=== PATIENT | male | born 1955 | race Caucasian/White ===

== ENCOUNTER → 2016-10-20 | Day surgery (SDC) | payer OTHER ==
[~2016-10-20] VITALS: Ht 188 cm; Wt 110.8 kg
[~2016-10-20] MED LIST: ACETAMINOPHEN 500 MG CPLT ONE; ATROPINE SULFATE 1% OPHT SOLN 2 ML BTL ONE; ATROPINE SULFATE 1% OPHT SOLN 5 ML BTL RIGHT EYE SCH; BALANCED SALT SOLN OPHT IRRIG 15 ML BTL ONE; CYCLOPENTOLATE HCL 1% OPHT SOLN 2 ML BTL RIGHT EYE SCH; DEXAMETHASONE SOD PHOS 4 MG/ML VIAL ONE; EPINEPHrine HCL (1:1000) 1 MG/ML VIAL ONE; FAMOTIDINE 20 MG/2 ML VIAL ONE; INSULIN HUMAN REGULAR 1,000 UNITS/10 ML VIAL SQ PRN; LACTATED RINGER'S 1000 ML IV SCH; METOPROLOL TARTRATE 25 MG TAB PO PRN; MIDAZOLAM HCL 2 MG/2 ML VIAL ONE; PHENYLEPHRINE HCL 2.5% OPTH SOLN 2 ML BTL RIGHT EYE SCH; PRIL10PO PO; PROPOFOL 200 MG/20 ML AMP IV ONE; SODIUM CHLORID 0.9% 500 ML IV SCH; STERILE WATER FOR INJ 20 ML VIAL ONE; TOBRAMYCIN/DEXAMETHASONE OPTH OINT 3.5 GM TUBE ONE; TRIAMCINOLONE ACETONIDE/PF 40 MG/ML OPTH VIAL ONE; TROPICAMIDE 1% OPTH SOLN 2 ML BTL RIGHT EYE SCH; ceFAZolin INJ 1,000 MG VIAL ONE
[2016-10-20 09:16] VITALS: BP 126/84; PULSE 52; RESP 18; TEMP 97.6; O2SAT 96
[2016-10-20 11:15] LABS: AUTOMATED NEUTROPHIL # 3.8 TH/MM3 (1.8-7.7); BASOPHIL % 0.5 % (0.0-2.0); EOSINOPHIL # 0.1 TH/MM3 (0-0.4); EOSINOPHIL % 1.8 % (0.0-4.0); HEMATOCRIT 42.2 % (39.0-51.0); HEMO FLAGS DIFF FINAL; LYMPH % 26.3 % (9.0-44.0); LYMPHOCYTE # 1.6 TH/MM3 (1.0-4.8); MEAN CORPUSCULAR HEMOGLOBIN 31.3 PG (27.0-34.0); MEAN CORPUSCULAR HGB CONC 32.6 % (32.0-36.0); NEUT % 63.4 % (16.0-70.0); PLATELET COUNT 217 TH/MM3 (150-450); RED CELL DISTRIBUTION WIDTH 13.5 % (11.6-17.2)
[2016-10-20 15:42] VITALS: BP 148/84; PULSE 54; RESP 16; TEMP 98.4; O2SAT 98
--- NOTE | 2016-10-24 11:19 | MP ---
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 PROCEDURE Trans pars plana vitrectomy with epiretinal membrane removal, subretinal membrane removal, internal drainage of subretinal fluid with the use of Perfluoron, endolaser photocoagulation, instillation of 1000 centistokes silicone oil, inferior diathermy right eye. SURGEON Dr. Felipe Patel ANESTHESIA General laryngeal mask anesthesia INDICATIONS Mr. Block is a 61-year-old gentleman with a history a retinal detachment four years ago who underwent a scleral buckle at that time. He states over the last year his vision has decreased gradually. He presented with an inferior retinal detachment with epiretinal membrane and subretinal membrane right eye, wished to proceed electively with repair of this situation to try and increase visual functioning. He was aware of the loss of the superior portion of his visual field. The risks and benefits of surgery were discussed with the patient. It was proposed that vitrectomy be done and any other necessary procedures to reattach the retina including the use of silicone oil. He agreed to proceed. No guarantee was made up as to visual outcome. PROCEDURE IN DETAIL He was brought to [facility] operating room one and placed on the operating table. Appropriate anesthesia monitoring devices were applied and he was placed under general anesthesia using a laryngeal mask. The right eye was identified as the operative site and then prepped and draped in the usual sterile fashion. A lid speculum was placed and the microscope was brought around and adjusted. At this time, an appropriate time-out was called with the surgical team agreeing to the surgical site and planned procedure. Using the Yasmani 23-gauge vitrectomy system, the trocar cannulas were placed 3-1/2 mm posterior to the limbus after first displacing the conjunctiva. The first one was placed at approximately 8:45 o'clock and verified to be in the posterior chamber. An infusion cannula was affixed to it and turned on, two additional trocar cannulas were placed at approximately 10 and 2 o'clock. The patient has had a previous vitrectomy when he had the scleral buckle, so a limited vitrectomy was done. Then using the flat contact lens for visualization and the Collin membrane scraper, a membrane was identified and partially peeled using the Collin membrane scraper. It was removed with forceps. It was extensive across the entire macula. Next, using internal diathermy a burn was placed just outside the inferotemporal arcade. Then using the vitrectomy cutter, a retinotomy was made. Through that retinotomy the subretinal band was removed followed by flattening of the retina with Perfluorocarbon and then endolaser photocoagulation of the inferior retinal mid periphery and periphery and around the retinotomy. The power was varied between 200 and 250 milliwatts and 0.1-second exposure. A total of 1102 spots were placed. The Perfluoron liquid was then removed and replaced with air. The air was then replaced with 1000 centistokes silicone oil. After the silicone oil was placed and the inferior iridectomy was performed, the cannulas were removed one by one and those sites closed with a single 7-0 Vicryl suture leaving the eye with good pressure and formed subconjunctival injections of Ancef 125 mg in 0.5 ml and Decadron 2 mg in 0.5 ml were given. The lid speculum was removed and the patient was undraped. TobraDex ointment was placed on the cornea and then the right eye was patched and shielded. The patient had the laryngeal mass removed in the room and was returned to recovery in good condition. MD ESTHELA Busby/ /1:56 PM /11:07 AM
== END | disposition home or self-care (01) ==
LOC: HSDC 07:59
PROVIDERS: ATTEND Ophthalmology
DX: H33.001 Unspecified retinal detachment with retinal break, right eye (principal); H35.371 Puckering of macula, right eye
CPT/HCPCS: 00145; 67108; 85025; C1814; J0171; J0690; J1100; J2250; J3010; J3300